=== PATIENT | female | born 1975 | race African-American/Black ===

== ENCOUNTER 2021-06-22 19:00 | Emergency (ER) | payer MEDICAID ==
[~2021-06-22] VITALS: Ht 167.6 cm; Wt 82.0 kg
[2021-06-22] MEDS ORDERED: MORPHINE SULFATE 4 MG/ML CPJ (NOT FOR IM USE) IV STA (20:29)
[2021-06-22] MEDS ORDERED: ONDANSETRON HCL 4MG/2ML INJ IV STA (20:29)
[2021-06-22 21:03] VITALS: BP 155/91
[2021-06-22 21:38] LABS: BASOPHILS % 0.7 % (0.0-2.0); EOSINOPHILS % 1.7 % (0.0-5.0); HEMATOCRIT. 40.5 % (36.0-48.0); HEMOGLOBIN. 13.1 g/dL (12.0-16.0); LYMPHOCYTES % 37.8 % (20.0-50.0); MEAN CORPUSCULAR HEMOGLOBIN 24.7 pg (28.0-32.0); MEAN CORPUSCULAR VOLUME 76.4 fL (81.0-99.0); MEAN PLATELET VOLUME 7.8 fl (7.4-10.4); MONOCYTES % 7.2 % (2.0-8.0); NEUTROPHILS % 52.6 % (40.0-76.0); PLATELET 252 x1000/uL (130-400); RED BLOOD CELL COUNT 5.31 mill/uL (4.2-5.4); RED CELL DISTRIBUTION WIDTH 16.3 % (11.6-14.6)
[2021-06-22 21:42] LABS: CHLORIDE 109 mEq/L (98-107)
[2021-06-22 21:44] LABS: HCG SCREEN NEGATIVE
[2021-06-22 21:47] LABS: ETHANOL BLOOD 197 mg/dL
[2021-06-23] MEDS ORDERED: ACET-2708 MT (00:47)
== END 2021-06-23 00:56 | disposition home or self-care (01) ==
LOC: ER 19:00
DX: M54.50 Low back pain, unspecified (principal); R51.9 Headache, unspecified; R07.89 Other chest pain
CPT/HCPCS: 36415; 70450; 71046; 72125; 72128; 72131; 72192; 80053; 80320; 83690; 84484; 84703; 85025; 86850; 86900; 86901; 93005; 96374; 96375; 99285; J2270; J2405; G0480

== ENCOUNTER 2021-06-23 02:05 | Emergency (ER) | payer MEDICAID ==
[~2021-06-23] VITALS: Ht 165.1 cm; Wt 65.0 kg
[~2021-06-23 02:05] MED LIST: ACET-2708 MT
[2021-06-23 02:38] VITALS: BP 140/100
[2021-06-23] MEDS ORDERED: IBUPROFEN 600MG TABLET PO ONE (03:00)
== END 2021-06-23 04:23 | disposition left against medical advice (07) ==
LOC: ER 02:05
DX: R07.89 Other chest pain (principal)
CPT/HCPCS: 99281